=== PATIENT | male | born 1975 | race Caucasian/White ===

== ENCOUNTER 2025-03-04 09:50 | Day surgery (SDC) | payer BC, SELFPAY ==
[2025-03-04] VITALS (13 sets, daily range): BP systolic 96–137; BP diastolic 61–101; PULSE 62–78; RESP 12–18; TEMP 36.2–37; O2SAT 99–100
--- NOTE | ~2025-03-04 | XR_ITS ---
EXAMINATION: XR retrograde pyelo w/stent LT DATE: 03/04/2025 14:24 INDICATION: Left internal stent placement TECHNIQUE: Fluoroscopic images from a left internal ureteral stent placement are submitted for review. 22 seconds of fluoroscopy time. FINDINGS: There is a left double-J internal ureteral stent projecting in expected position, with proximal [place] loop at the level of the renal pelvis and distal loop in the pelvis within the bladder lumen. IMPRESSION: 1. Left internal ureteral stent placement. Please refer to real-time procedural findings for details. Reviewed, dictated and finalized at location O. IMPRESSION: 1. Left internal ureteral stent placement. Please refer to real-time procedur al findings for details.
--- NOTE | ~2025-03-04 | XR_ITS ---
EXAM/PROCEDURE: XR abdomen/kub 1V - 03/04/2025 11:20 CDT HISTORY: 49 years old Male with flank pain, renal stone COMPARISON: None available. TECHNIQUE: AP view(s) of the abdomen. FINDINGS: The bowel gas pattern is normal. There is no evidence for obstruction. Mild stool burden, likely constipation. No free intraperitoneal air is identified on this supine radiograph. The visualized soft tissue shadows are unremarkable. No gross bony abnormalities are seen. Visualized portions of lung bases are clear. IMPRESSION: No acute process. Reviewed, dictated and finalized at location N. IMPRESSION: No acute process.
--- NOTE | ~2025-03-04 | CT_ITS ---
EXAMINATION: CT abdomen pelvis wo con DATE: 03/04/2025 10:27 INDICATION: Left flank pain. Nephrolithiasis. TECHNIQUE: Computed tomography (CT) of the abdomen and pelvis was performed without intravenous contrast. Automated exposure control and iterative reconstruction technique were employed. The dose-length product was 253.34 mGy-cm. COMPARISON: 11/06/07 FINDINGS: Minimal dependent atelectasis in the lower lobes. Heart size is normal. No pericardial or pleural effusion. There are a few small low-attenuation hepatic cysts the largest posteriorly in the right hepatic lobe measuring 2.0 cm. Gallbladder, spleen, pancreas and bilateral adrenal glands are normal. Bilateral nephrolithiasis including 3 stones in the right kidney measuring up to 5 mm and a 3 mm stone in the upper pole of the left kidney. Additionally there is a 5-6 mm stone in the proximal left ureter with mild left hydronephrosis. Bowels including the appendix are normal. Bladder is normal. No free intraperitoneal gas or fluid. No pathologically enlarged abdominal or pelvic lymphadenopathy. Mild thoracic spondylosis. Chronic minimal to mild likely pathologic anterior wedging at T11-L2. IMPRESSION: 1. Bilateral nephrolithiasis with obstructing 5-6 mm proximal left ureteral stone with mild left hydronephrosis. Reviewed, dictated and finalized at location A. IMPRESSION: 1. Bilateral nephrolithiasis with obstructing 5-6 mm proximal left ureteral sto ne with mild left hydronephrosis.
--- OUTSIDE RECORDS SUMMARY | 2025-03-04 10:01 | XMS_ITS | Clinical Summary ---
Author Organization [address] Address [address] [place] [id number] Care Team Providers Care Collections Associate Name Role Phone Anjelica Lopez MD Primary Care Provider [phone] Allergies No known active allergies Medications DOXYCYCLINE 100 mg tablet TK 1 T PO QD 11 12/21/2018 Active Active Problems No known active problems Family History Medical History Relation Name Comments Cancer Other Relation Name Status Comments Other Social History Tobacco Use Types Packs/Day Years Used Date Smoking Tobacco: Never Personal Safety Answer Date Recorded Getting School Help Needed Not on file 09/13 Sex and Gender Information Value Date Recorded Sex Assigned at Not on file Legal Sex Male 11:49 AM CDT Gender Identity Not on file Sexual Orientation Not on file Obstetrics History Last Filed Vital Signs Vital Sign Reading Time Taken Comments Blood Pressure 145/103 01/12/2019 7:26 AM CDT Pulse 76 01/12/2019 7:26 AM CDT Temperature - - Respiratory Rate - - Oxygen Saturation - - Inhaled Oxygen Concentration - - Weight 96.2 kg (212 lb) 01/12/2019 7:26 AM CDT Height 182.9 cm (6') 01/12/2019 7:26 AM CDT Body Mass Index 28.75 01/12/2019 7:26 AM CDT Plan of Treatment Not on file Insurance [facility] CHOICE PLUS [facility] HMO/PPO Address: [place] [phone] Care Teams Collections Associate Relationship Specialty Start Date End Date Anjelica Lopez MD PCP - General Family Medicine 01/07/19
--- NOTE | 2025-03-04 10:24 | ED.BACK ---
HPI - Back Pain/Injury General Chief Complaint: Back Pain/Injury Stated Complaint: kidney stone, back pain Time Seen by Provider: 03/04/25 10:05 Source: patient and RN notes reviewed Mode of arrival: ambulatory Limitations: no limitations History of Present Illness HPI Narrative: 49-year-old male presents Express Care complaining of left flank pain the last 4-5 days patient was seen in the ER back in [place] for left flank pain was told he was a 5 mm nonobstructing stone. Patient was discharged with Flomax and pain meds since in the patient says his pain is gotten worse and route his prescription he was given for pain. Patient took Motrin prior to arrival. Patient denies any urinary symptoms, fevers, body aches, chills, nausea, vomiting, abdominal pain, difficulty urinating or other symptoms. Patient was not given a urologist to follow up with. Related Data Allergies Allergy/AdvReac Type Severity Reaction Status Date / Time No Known Allergies Allergy Verified 03/04/25 10:01 Review of Systems Review of Systems: CONSTITUTIONAL: Denies fever, chills, or sweats. EYES: Denies visual changes, redness, or discharge. ENT: Denies rhinorrhea, congestion, sore throat, or otalgia. CARDIOVASCULAR: Denies chest pain, palpitations, or edema. RESPIRATORY: Denies cough or dyspnea. GASTROINTESTINAL: Denies abdominal pain, nausea, vomiting, or diarrhea. GENITOURINARY: Denies dysuria or hematuria. SKIN: Denies rash or itching. MUSCULOSKELETAL: Denies back pain, joint pain, or myalgia. Positive for flank pain. NEUROLOGIC: Denies headache, numbness, or weakness. PSYCHIATRIC: Denies anxiety or depression. All other systems reviewed are negative, except as documented in HPI. [facility] Past Medical History Medical History Hypertension Family History Family History Mother Breast cancer Father Healthy adult Sibling Thyroid disease Social History Social History Smoking status: Never smoker Alcohol intake: current Alcohol use details: moderate, socially Substance use: never Substance use type: does not use Comments At the time of my signature, I reviewed and agree with the nursing past medical, surgical, social, and family history. There is no relevant family history pertinent to the patient complaint. Exam Narrative: GENERAL: This is a well-nourished, well-developed adult, in no apparent distress. They are non ill-appearing, nontoxic appearing. HEAD: normocephalic, atraumatic. EYES: Sclera clear/white. Conjunctiva normal. Vision is grossly intact. Extraocular movements intact EARS: External ears normal, Hearing grossly intact. NOSE: External nose normal THROAT: Mucous membranes moist, NECK: Neck supple, CARDIOVASCULAR: Regular rate and rhythm without murmurs, gallops, or rubs. RESPIRATORY: Clear to auscultation. Breath sounds equal bilaterally. No wheezes, rales, or rhonchi. GASTROINTESTINAL: Abdomen soft, non-tender, nondistended. Bowel sounds are active. No hepato-splenomegaly, or palpable masses. No guarding or rigidity. No rebound tenderness. SKIN: warm, Dry, intact with no suspicious lesions or rash, good texture and turgor. NEURO: awake, alert, and oriented to person, place and time. There were no obvious focal neurologic abnormalities. EXTREMITIES: No joint tenderness, effusion, or edema noted. BACK: Nontender without deformity. No CVA tenderness. Course Course Emergency Course: [address] Spring 1120 [place]jun[place] returned call [phone] second call out to Dr. Spring. Vital Signs Vital signs: Vital Signs Temperature 98.2 F 03/04/25 09:56 Pulse Rate 64 03/04/25 09:56 Respiratory Rate 16 03/04/25 09:56 Blood Pressure 137/101 H 03/04/25 09:56 Pulse Oximetry 100 03/04/25 09:56 Oxygen Delivery Room Air 03/04/25 09:56 Temperature 97.2 F L 03/04/25 14:28 Pulse Rate 67 03/04/25 17:00 Respiratory Rate 15 03/04/25 15:25 Blood Pressure 123/81 03/04/25 17:00 Pulse Oximetry 99 03/04/25 15:25 Oxygen Delivery Room Air 03/04/25 17:00 Oxygen Flow Rate 8 03/04/25 14:40 Reviewed MDM - Back Pain/Injury MDM Narrative Medical decision making narrative: Repeat imaging to says renal stone obtain repeat lab work in urine. Patient took Motrin prior to arrival. Will give patient a dose of fentanyl for pain. CBC unremarkable. No leukocytosis. Chemistry shows elevated creatinine, BUN and decreased GFR. CT abdomen pelvis shows bilateral kidney stones with obstructing 5-6 mm stone in the proximal left stone with mild left hydronephrosis. Spoke with Urology with Dr. Spring who recommends depending on patient's pain level to go ahead and perform ureteral stent today for outpatient follow-up palpation next week for it. Patient says his pain is not well controlled at home despite pain medications. Your patient would like to have intervention done today. Patient says he last ate or drank around 830 today stating he had a roll for breakfast. KUB ordered per urology request. Patient is to have a ureteral stent placed today by Dr. Spring patient will go to OR will be discharged from there outpatient. Patient updated about plan of care. Patient advised to remain NPO. Differential Diagnosis Differential diagnosis: Likely renal colic, pyelonephritis and other (Urinary tract infection) Lab Data Attestation: I reviewed the patient's lab results. 03/04/25 10:16 03/04/25 10:16 Labs: Lab Results 03/04/25 Range/Units 10:16 WBC 5.3 (4.5-10.0) K/mm3 RBC 4.65 (4.6-6.20) M/mm3 Hgb 14.2 (14.0-18.0) g/dL Hct 40.6 L (42.0-52.0) % MCV 87.3 (80-100) fl MCH 30.5 (26-34) pg MCHC 35.0 (32-36) g/dl RDW 11.8 (11.5-14.5) % Plt Count 164 (150-375) k/mm3 MPV 10.1 (7.4-10.4) fl Immature Gran % (Auto) 0.2 (0-0.5) % Neut % (Auto) 82.5 H (45.5-73.1) % Lymph % (Auto) 9.4 L (18.3-44.2) % [place] % (Auto) 7.1 (2.6-8.5) % Eos % (Auto) 0.6 (0-4.4) % Baso % (Auto) 0.2 (0.2-1.2) % Lymph # (Auto) 0.50 L (0.9-3.2) K/mm3 [place] # (Auto) 0.4 (0.1-0.6) K/mm3 Eos # (Auto) 0.0 (0-0.3) K/mm3 Baso # (Auto) 0.0 (0.0-0.1) K/mm3 Abs Immat Gran (auto) 0.01 (0.00-0.031) K/mm3 Absolute Neuts (auto) 4.4 (1.3-6.7) K/mm3 Absolute Nucleated RBC 0.000 (0.0-0.012) K/mm3 Nucleated RBC % 0.0 (0.0-0.2) % Sodium 140 (137-145) mmol/L Potassium 4.4 (3.4-5.0) mmol/L Chloride 103 (98-107) mmol/L Carbon Dioxide 27 (22-30) mmol/L Anion Gap 10 (4-12) mmol/L BUN 30 H (9-20) mg/dL Creatinine 1.79 H (0.7-1.3) mg/dL Estim Creat Clear Calc 50 ml/min Estimated GFR 41 L (59 - ) Glucose 111 H (65-110) mg/dL Calcium 9.9 (8.4-10.2) mg/dL Total Bilirubin 0.7 (0.2-1.3) mg/dL AST 30 (17-59) U/L ALT 24 (6-50) U/L Alkaline Phosphatase 52 (38-126) U/L Total Protein 7.7 (6.3-8.2) g/dL Albumin 4.5 (3.5-5.1) g/dL Urine Color Yellow (Yellow) Urine Appearance Clear (Clear) Urine pH 5.5 (5.0-9.0) Ur Specific [place] 1.024 (1.001-1.035) Urine Protein Negative (Negative) mg/dL Urine Glucose (UA) Negative (Negative) mg/dL Urine Ketones Trace H (Negative) mg/dL Ur Blood (Man) Trace (Negative) Urine Nitrate Negative (Negative) Urine Bilirubin Negative (Negative) Urine Urobilinogen 0.2 (<2.0) mg/dL Leukocyte Esterase Rfl Negative (Negative) ELLE/UL Urine RBC 6-10 H (0-2) /hpf Urine WBC 0-5 (0-3) /hpf Ur Squamous Epith Cells None seen (Few) /hpf Urine Bacteria None seen /hpf Urine Casts 0-2 Imaging Data Radiologist's impression: ITS Impressions Abdomen/Pelvis CT 03/04/25 10:35 IMPRESSION: 1. Bilateral nephrolithiasis with obstructing 5-6 mm proximal left ureteral stone with mild left hydronephrosis. Critical Care Time Critical Care Time Critical Care Time: No Discharge Plan Discharge Clinical Impression: Kidney stone Patient Disposition: Still a Patient Condition: Stable Time of Disposition: 11:36
[2025-03-04 10:26] LABS: Hematocrit 40.6 % (42.0-52.0); Hemoglobin 14.2 g/dL (14.0-18.0); Immature Granulocyte Percent A 0.2 % (0-0.5); Lymphocytes Absolute Auto 0.50 K/mm3 (0.9-3.2); Mean Corpuscular HGB Conc 35.0 g/dl (32-36); Mean Corpuscular Hemoglobin 30.5 pg (26-34); Mean Corpuscular Volume 87.3 fl (80-100); Nucleated Red Blood Cells Absolute Auto 0.000 K/mm3 (0.0-0.012); Nucleated Red Blood Cells Perc 0.0 % (0.0-0.2); Platelet Count Result 164 k/mm3 (150-375); Red Blood Count 4.65 M/mm3 (4.6-6.20); White Blood Count 5.3 K/mm3 (4.5-10.0)
[2025-03-04 10:30] LABS: Add Urine Microscopic? YES; Appearance Urine Clear (Clear); Glucose Urine UA Negative (Negative); Leukocyte Esterase Ur Negative LEU/UL (Negative); Nitrate Urine Negative (Negative); Non Pathogenic Casts 0-2; Specific Grav Ur 1.024 (1.001-1.035)
[2025-03-04 10:44] LABS: Alanine Aminotransferase 24 U/L (6-50); Albumin Level 4.5 g/dL (3.5-5.1); Alkaline Phosphatase 52 U/L (38-126); Anion Gap 10 mmol/L (4-12); Aspartate Amino Transferase 30 U/L (17-59); Bilirubin,Total 0.7 mg/dL (0.2-1.3); Blood Urea Nitrogen 30 mg/dL (9-20); Calcium 9.9 mg/dL (8.4-10.2); Carbon Dioxide 27 mmol/L (22-30); Chloride 103 mmol/L (98-107); Estimated CRCL calculation 50 ml/min; Estimated Glomerular Filt Rate 41; Glucose 111 mg/dL (65-110); Potassium 4.4 mmol/L (3.4-5.0); Sodium 140 mmol/L (137-145); Total Protein 7.7 g/dL (6.3-8.2)
[2025-03-04] MEDS: fentaNYL CITRATE INJ (*CRX) 100 MCG/2 ML VIAL 50 MCG IV PUSH ×2 (10:52→12:44)
--- OUTSIDE RECORDS SUMMARY | 2025-03-04 11:33 | XMS_ITS | Clinical Summary ---
Author Organization [facility] Address [address] [place] [address] Care Team Providers Care Philosophy Faculty Name Role Phone Unavailable Primary Care Provider Unavailabl e Social History Tobacco Use Types Packs/Day Years Used Date Smoking Tobacco: Never Assessed Sex and Gender Information Value Date Recorded Sex Assigned at Not on file Legal Sex Male 7:49 AM CDT Gender Identity Not on file Sexual Orientation Not on file Plan of Treatment Health Maintenance Due Date Last Done Comments Colorectal Cancer Screening Colonoscopy (10 Years) 1976 Annual Physical 10/28/1979 Hepatitis C 1994 DTaP, Tdap and Td Vaccines ( 1 - Tdap) 10/28/1995 Hepatitis B Vaccines (1 of 3 - 19+ 3-dose series) 10/28/1995 COVID-19 Vaccine (2023-2 5 season) 2025 Meningococcal B Vaccine Aged Out No l onger eligible based on patient's age to complete this topic Meningococcal Vaccine Aged Out No tarsha rex eligible based on patient's age to complete this topic Pneumococcal Vaccine: Pediat rics (0 to 5 Years) and At-Risk Patients (6 to 49 Years) Aged Out No longer eligible b ased on patient's age to complete this topic RSV Immunizations Under 20 Months Aged Out No longer eligible based on patient's age to complete this topic
--- OUTSIDE RECORDS SUMMARY | 2025-03-04 11:33 | XMS_ITS | Clinical Summary ---
Author Organization [address] Address [address] [place] [id number] Care Team Providers Care Bow Machine Operator Name Role Phone Anjelica Lopez MD Primary Care Provider [phone] Allergies No known active allergies Medications DOXYCYCLINE [...] Plan of Treatment Not on file Insurance [facility] CHOICE PLUS Member Subscriber Plan / Payer (Ef fective 2018-Present) Name:Diogenes Hall Relation to Subscriber:Self Name:Diogenes Hall Payer ID:[id number] (NAIC) Type:[facility] HMO/PPO Address: [place] [phone] Care Teams Bow Machine Operator Relationship Specialty Start Date End Date Anjelica Lopez MD PCP - General Family Medicine 01/07/19
--- NOTE | 2025-03-04 12:38 | WPDURCON ---
Assessment and Plan Assessment and plan (1) Kidney stone: Code(s): N20.0 - Calculus of kidney Status: Acute (2) Hydronephrosis: Code(s): N13.30 - Unspecified hydronephrosis Status: Acute Plan 49y old with left proximal ureteral stone. -Bilateral nephrolithiasis with obstructing 5-6 mm proximal left ureteral stone with mild left hydronephrosis. -plan for cystoscopy, left ureteroscopy with stent placement and possible stone extraction with Dr. Smith. -cr 1.79 -wbc wnl -UA unremarkable for infection. -discussed risks of surgery including infection, bleeding, damage to surrounding structures, and . Discussed the procedure and the ureteral stent as well as what to expect after discharge and management afterwards. patient and agreeable to surgery today. -keep npo Urology Consult Note HPI Date Seen: 03/04/25 Requesting Physician: Sunny Spring MD Primary Care Provider: Anjelica Lopez MD Consult Narrative Narrative: Diogenes Hall is a 49 year old male presents Express Care complaining of left flank pain the last 4-5 days patient was seen in the ER back in [place] for left flank pain was told he was a 5 mm nonobstructing stone. Patient was discharged with Flomax and pain meds since in the patient says his pain is gotten worse and route his prescription he was given for pain. Patient took Motrin prior to arrival. Patient denies any urinary symptoms, fevers, body aches, chills, nausea, vomiting, abdominal pain, difficulty urinating or other symptoms. Patient was not given a urologist to follow up with. Review of Systems Review of Systems: All systems reviewed & are unremarkable except as noted in HPI and below [facility] Past Medical History Medical History Hypertension Family History Family History Mother Breast cancer Father Healthy adult Sibling Thyroid disease Social History Social History Smoking status: Never smoker Alcohol intake: current Alcohol use details: moderate, socially Substance use: never Substance use type: does not use Meds Home Medications and Allergies Home Medications ?Medication ?Instructions ?Recorded ?Confirmed ?Type metoprolol succinate 25 mg 25 mg PO DAILY #90 tabs 02/18/25 Rx tablet,extended release 24 hr Allergies Allergy/AdvReac Type Severity Reaction Status Date / Time No Known Allergies Allergy Verified 03/04/25 10:01 Vital Signs Vital Signs - 24 hr 03/04/25 09:56 03/04/25 11:41 Temperature 98.2 F 98.5 F Pulse Rate 64 62 Respiratory Rate 16 17 Blood Pressure 137/101 H 125/96 H Pulse Oximetry 100 100 Oxygen Delivery Room Air Exam Const: General: no acute distress and uncomfortable HENMT: Face/Nose/Sinus: Normal nares present Eyes: General: appearance normal, both eyes and all related structures Resp: Effort & Inspection: normal respiratory effort Skin: General skin exam: normal color Neuro: Speech: normal speech Psych: Speech and movement: Normal speech and movement present Results Labs 03/04/25 10:16 03/04/25 10:16 Labs: Short CBC 03/04/25 Range/Units 10:16 WBC 5.3 (4.5-10.0) K/mm3 Hgb 14.2 (14.0-18.0) g/dL Hct 40.6 L (42.0-52.0) % Plt Count 164 (150-375) k/mm3 BMP 03/04/25 10:16 Sodium 140 Potassium 4.4 Chloride 103 Carbon Dioxide 27 BUN 30 H Creatinine 1.79 H Glucose 111 H Calcium 9.9 Liver Function 03/04/25 Range/Units 10:16 Total Bilirubin 0.7 (0.2-1.3) mg/dL AST 30 (17-59) U/L ALT 24 (6-50) U/L Alkaline Phosphatase 52 (38-126) U/L Albumin 4.5 (3.5-5.1) g/dL Urine 03/04/25 Range/Units 10:16 Urine Color Yellow (Yellow) Urine Appearance Clear (Clear) Urine pH 5.5 (5.0-9.0) Ur Specific [place] 1.024 (1.001-1.035) Urine Protein Negative (Negative) mg/dL Urine Glucose (UA) Negative (Negative) mg/dL
--- NOTE | 2025-03-04 13:21 | WPDHPUPDATE1 ---
History and Physical Update Update Date/Time: 03/04/25 13:21 History and Physical has been reviewed, including an updated exam of the patient. There are NO changes in the patient's condition. Risks, benefits, and alternatives have been discussed and questions answered. Patient agrees to proceed with procedure. Proceed with cystoscopy, left rpg, left stent , possible ureteroscopy with laser.
[2025-03-04] MEDS: LACTATED RINGERS 1,000 ML 30 ML IV CONT (13:25)
--- NOTE | 2025-03-04 13:32 | P.PNAN_ITS ---
Anes - Initial Pre Proc Eval Procedure: Operation Date: 03/04/25 14:00 Proposed Procedures p Cystoscopy, Left Retrograde Pyelogram, Left Stent Placement, Possible Left Ureteroscopy, Possible Left Stone Extraction, Possible Holmium Laser - Sunny Spring MD Date/Time: 03/04/25 13:32 Surgeon: Sunny Spring MD Pre Op Diagnosis: kidney stone, back pain Patient Data Age: 49 Gender: M Height: 1.83 m Weight: 91.3 kg Last Vital Signs Temp 36.8 C 03/04/25 12:55 Pulse 66 03/04/25 12:55 Resp 15 03/04/25 12:55 BP 126/89 03/04/25 12:55 Pulse Ox 100 03/04/25 12:55 O2 Del Method Room Air 03/04/25 09:56 Allergies Allergy/AdvReac Type Severity Reaction Status Date / Time No Known Allergies Allergy Verified 03/04/25 10:01 Home Medications ?Medication ?Instructions ?Recorded ?Confirmed ?Type metoprolol succinate 25 mg 25 mg PO DAILY #90 tabs Rx tablet,extended release 24 hr Laboratory Tests 03/04/25 10:16 WBC 5.3 K/mm3 (4.5-10.0) RBC 4.65 M/mm3 (4.6-6.20) Hgb 14.2 g/dL (14.0-18.0) Hct 40.6 L % (42.0-52.0) MCV 87.3 fl (80-100) MCH 30.5 pg (26-34) MCHC 35.0 g/dl (32-36) RDW 11.8 % (11.5-14.5) Plt Count 164 k/mm3 (150-375) MPV 10.1 fl (7.4-10.4) Immature Gran % (Auto) 0.2 % (0-0.5) Neut % (Auto) 82.5 H % (45.5-73.1) Lymph % (Auto) 9.4 L % (18.3-44.2) [place] % (Auto) 7.1 % (2.6-8.5) Eos % (Auto) 0.6 % (0-4.4) Baso % (Auto) 0.2 % (0.2-1.2) Lymph # (Auto) 0.50 L K/mm3 (0.9-3.2) [place] # (Auto) 0.4 K/mm3 (0.1-0.6) Eos # (Auto) 0.0 K/mm3 (0-0.3) Baso # (Auto) 0.0 K/mm3 (0.0-0.1) Abs Immat Gran (auto) 0.01 K/mm3 (0.00-0.031) Absolute Neuts (auto) 4.4 K/mm3 (1.3-6.7) Absolute Nucleated RBC 0.000 K/mm3 (0.0-0.012) Nucleated RBC % 0.0 % (0.0-0.2) Sodium 140 mmol/L (137-145) Potassium 4.4 mmol/L (3.4-5.0) Chloride 103 mmol/L (98-107) Carbon Dioxide 27 mmol/L (22-30) Anion Gap 10 mmol/L (4-12) BUN 30 H mg/dL (9-20) Creatinine 1.79 H mg/dL (0.7-1.3) Estim Creat Clear Calc 50 ml/min Estimated GFR 41 L (59 - ) Glucose 111 H mg/dL (65-110) Calcium 9.9 mg/dL (8.4-10.2) Total Bilirubin 0.7 mg/dL (0.2-1.3) AST 30 U/L (17-59) ALT 24 U/L (6-50) Alkaline Phosphatase 52 U/L (38-126) Total Protein 7.7 g/dL (6.3-8.2) Albumin 4.5 g/dL (3.5-5.1) Urine Color Yellow (Yellow) Urine Appearance Clear (Clear) Urine pH 5.5 (5.0-9.0) Ur Specific [place] 1.024 (1.001-1.035) Urine Protein Negative mg/dL (Negative) Urine Glucose (UA) Negative mg/dL (Negative) Urine Ketones Trace H mg/dL (Negative) Ur Blood (Man) Trace (Negative) Urine Nitrate Negative (Negative) Urine Bilirubin Negative (Negative) Urine Urobilinogen 0.2 mg/dL (<2.0) Leukocyte Esterase Rfl Negative ELLE/UL (Negative) Urine RBC 6-10 H /hpf (0-2) Urine WBC 0-5 /hpf (0-3) Ur Squamous Epith Cells None seen /hpf (Few) Urine Bacteria None seen /hpf Urine Casts 0-2 Patient hx anesthesia problems: none Family hx anesthesia problems: none Results Review: All pre-operative results and documents have been reviewed as part of the pre- operative evaluation. [facility] Past Medical History Medical History Hypertension Family History Family History Mother Breast cancer Father Healthy adult Sibling Thyroid disease Social History Social History Smoking status: Never smoker Alcohol intake: current Alcohol use details: moderate, socially Substance use: never Substance use type: does not use Anes - Eval Final PreProcedure Day of Procedure 03/04/25 13:32 Patient weight: overweight Heart: regular rate and rhythm Lungs: clear to auscultation Airway: Mallampati scale class III Neurological: alert and oriented Last oral intake: 6 hours ASA classification: II Emergent: no Anesthetic plan: proceed Anesthesia type and monitoring: general LMA and standard monitoring Results Review: All pre-operative results and documents have been reviewed as part of the pre- operative evaluation. Informed Consent: The patient's anesthetic plan and its attendant risks and benefits were discussed with the patient/family/POA. Questions were solicited and answers provided to the satisfaction of the patient/family/POA.
[2025-03-04] MEDS: ceFAZolin 2 GM in SODIUM CHLORIDE 0.9% IV 50 ML 100 ML IVPB (13:35)
[2025-03-04] MEDS: LIDOCAINE 2% GEL UROJET 10 ML PKG MUCOUS MEM (13:53)
--- NOTE | 2025-03-04 14:22 | W.PM.PROC2 ---
Procedure Note - Detailed Date of Procedure 03/04/25 Pre-op Diagnosis Right ureteral calculus Post-op Diagnosis Same Procedure Performed Cystoscopy, right retrograde, right ureteroscopy with holmium laser, right ureteral stent placement 4.8 Luxembourger contour Surgeon Sunny Spring MD Anesthesia General Description of Procedure Patient was taken to the operative suite correctly identified. Once anesthesia was obtained was placed in dorsal lithotomy position and prepped and draped usual sterile fashion. Nineteen Luxembourger scope was inserted the bladder direct vision. There were no urethral strictures. Prostate nonobstructive. Upon entering the bladder there are no tumors noted. The left ureteral orifice was cannulated with a guidewire. Ureteral access sheath was placed. The flexible ureteral scope was then inserted. The stone in the proximal ureter got flushed into the kidney. At this point time a 200 micron fiber was used to dust the stone. We then went to another calyx and found another stone which we dusted. Pyelogram was then performed to confirm placement of the stent. 4.8 Luxembourger contour stent was then placed with the proximal end coiled in the renal pelvis and the distal in the bladder. Bladder was drained. 2% viscous lidocaine was inserted into the urethra patient is taken recovery stable condition. He does well in recovery room he will be discharged home with follow-up in a week's time for stent removal. Scripts sent to pharmacy. This completes dictation. Please send a copy of op note to my office Drains Yes Packing No Pathology None sent Complications No immediate complications Condition Stable Disposition PACU
[2025-03-04] MEDS: oxyCODONE HCL (*CRX) 5 MG TAB IR PO (16:20)
== END 2025-03-04 17:05 | disposition home or self-care (01) ==
LOC: ANHED 11:33 → ANHSURGERY 11:37
PROVIDERS: Emergency Medicine; PCP Family Medicine; Visit Provider Urology
PROC: (CPT 52352; principal; 2025-03-04 14:00)
DX: N13.2 Hydronephrosis with renal and ureteral calculous obstruction (principal)
CPT/HCPCS: 52356; 36415; 74018; 74176; 74420; 80053; 81001; 85025; 87086; 96374; 96376; 99285; J0690; A9270; C1769; C1894; C2617; J1100; J2250; J2270; J2405; J2704; J3010; J7120; Q9966